=== PATIENT | female | born 1985 | race Caucasian/White ===

== ENCOUNTER 2018-02-05 00:33 | Emergency (ER) | payer MEDICAID, SELFPAY ==
[2018-02-05 00:33] VITALS: BMI 29.2
[2018-02-05 00:46] VITALS: TEMP 98.1
--- NOTE | 2018-02-05 00:58 | C.PDOC ---
History Of Present Illness 32 year old female, who is currently around 10 weeks , presents to the ED for evaluation after experiencing vaginal bleeding earlier today. Patient denies any pain or active bleeding at this time. Chief Complaint (Nursing): Abdominal Pain History Per: Patient History/Exam Limitations: no limitations Onset/Duration Of Symptoms: Hrs Current Symptoms Are (Timing): Better Quality Of Discomfort: denies: "Pain" Additional History Per: Patient Abnormal Vaginal Bleeding: Yes Past Medical History Reviewed: Historical Data, Nursing Documentation, Vital Signs Vital Signs: Last Vital Signs Temp 98.1 F 02/05/18 00:42 Pulse 82 02/05/18 00:42 Resp 20 02/05/18 00:42 BP 108/72 02/05/18 00:42 Pulse Ox 100 02/05/18 03:50 - Medical History PMH: No Chronic Diseases Surgical History: Appendectomy - [facility] Procedures ASPIRAT CURET-POST DELIV (01/10/15) LOW CERVICAL (09/14/13) Family History: States: Unknown Family Hx - Social History Hx Tobacco Use: No Hx Alcohol Use: No Hx Substance Use: No - Immunization History Hx Tetanus Toxoid Vaccination: No Hx Influenza Vaccination: No Hx Pneumococcal Vaccination: No Review Of Systems Genitourinary: Positive for: Vaginal Bleeding Physical Exam - Physical Exam Appears: Non-toxic, No Acute Distress Skin: Normal Color, Warm, Dry Head: Atraumatic, Normacephalic Eye(s): bilateral: Normal Inspection Oral Mucosa: Moist Neck: Supple Chest: Symmetrical, No Deformity, No Tenderness Cardiovascular: Rhythm Regular, No Murmur Respiratory: Normal Breath Sounds, No Rales, No Rhonchi, No Wheezing Gastrointestinal/Abdominal: Soft, No Tenderness, No Guarding, No Rebound Pelvic: No Vaginal Bleeding, No Adnexal Tenderness, Other (old blood noted in vaginal vault. no acute bleeding ) Extremity: Normal ROM, Capillary Refill (less than 2 seconds ) Neurological/Psych: Oriented x3, Normal Speech, Normal Cognition ED Course And Treatment - Laboratory Results Result Diagrams: 02/05/18 01:11 02/05/18 01:11 O2 Sat by Pulse Oximetry: 100 (on RA) Pulse Ox Interpretation: Normal - CT Scan/US Ultrasound Other Rad Studies (CT/US): Read By Radiologist, Radiology Report Reviewed CT/US Interpretation: EXAM: US First Trimester, Transabdominal. US , Transvaginal. CLINICAL HISTORY: 32 years old, female; Pain; complicated by abdominal or pelvic pain and other: Bleeding;. Lower; First trimester; Gestational age or lmp: 10/05/2017; ; Additional info: 4 months. . TECHNIQUE: Real-time transabdominal and transvaginal obstetrical ultrasound of the maternal pelvis and a first. trimester with image documentation. Transvaginal imaging was used for better evaluation. of the fetus and adnexa. COMPARISON: No relevant prior studies available. FINDINGS: Gestation: Single intrauterine . [place]-rump length 4.16 cm, corresponding to 11 weeks 0. days. This corresponds to an estimated delivery date of 08/27/2017, and differs from established. clinical dating by 6 weeks 4 days. No heart rate detected by M-mode imaging. Mean gestational. sac diameter of 5.41 cm, corresponding to 11 weeks 2 days. Placenta/amniotic fluid : Amniotic fluid volume is grossly normal. Uterus/cervix: A uterus measures 15.2 cm and 8.2 cm x 10.3 cm, and is anteverted in orientation. The cervix measures 5.2 cm in length with diffuse endocervical fluid. No funneling of the internal os. No myometrial mass. Ovaries: The right ovary is normal in size and echotexture measuring 2.7 cm x 2.4 cm x 2.7 cm. Normal color Doppler flow and spectral Doppler waveform within this ovary. Left ovary is normal in. size and echotexture measuring 2.7 cm x 1.8 cm x 2.6 cm. Normal color Doppler flow and spectral. Doppler waveform are present within this ovary. No mass. Free fluid: No free fluid. ROBERT GABRIEL | Preliminary Radiology Report. CONFIDENTIALITY STATEMENT. This report is intended only for the use of the referring physician, and only in accordance with law, If you received this in error, call [phone]. Page 2 of 2. IMPRESSION: 1. Single intrauterine with imaging findings consistent with first trimester . failure, as no heart rate was detected. 2. The crown-rump length corresponds to a gestational age of 11 weeks 0 days and delivery date of. 08/27/2017. This is discordant with established dating, and differs from established clinical dating by. 6 weeks 4 days. 3. The cervix appears long with a small amount of internal endocervical fluid. No significant cervical. funneling. 4. Normal appearance of the ovaries. No torsion. Progress Note: Bloodwork, urinalysis and pelvic ultrasound ordered and reviewed. Disposition Counseled Patient/Family Regarding: Diagnosis - Disposition Referrals: [facility] [Outside] Disposition: HOME/ ROUTINE Disposition Time: 03:49 Condition: STABLE Instructions: Miscarriage Forms: Gen Discharge Inst Occitan, [employer]ix (French) Print Language: OMANI - POA Present On Arrival: None - Clinical Impression Clinical Impression: demise, less than 22 weeks - Scribe Statement The provider has reviewed the documentation as recorded by the Scribe (Isabel Cook) Provider Attestation: All medical record entries made by the Scribe were at my direction and personally dictated by me. I have reviewed the chart and agree that the record accurately reflects my personal performance of the history, physical exam, medical decision making, and the department course for this patient. I have also personally directed, reviewed, and agree with the discharge instructions and disposition.
[2018-02-05 01:20] LABS: BASO # 0.1 K/uL (0.0-0.2); BASO % 0.8 % (0.0-2.0); EOS # 0.1 K/uL (0.0-0.7); EOS % 0.9 % (0.0-4.0); HEMOGLOBIN 13.4 g/dL (11.0-16.0); LYMPH # 2.5 K/uL (1.0-4.3); LYMPH % 28.9 % (20.0-40.0); MEAN CELL VOLUME 97.1 fL (81.0-99.0); MEAN CORPUSCULAR HEMOGLOBIN 33.4 pg (27.0-31.0); MEAN CORPUSCULAR HGB CONC 34.4 g/dL (33.0-37.0); MEAN PLATELET VOLUME 8.1 fL (7.2-11.7); MONO # 0.6 K/uL (0.0-0.8); MONO % 6.9 % (0.0-10.0); NEUT # 5.3 K/uL (1.8-7.0); NEUT % 62.5 % (50.0-75.0); RBC 4.01 Mil/uL (3.80-5.20); RED CELL DISTRIBUTION WIDTH 12.6 % (11.5-14.5); WHITE BLOOD COUNT 8.5 K/uL (4.8-10.8)
[2018-02-05 01:24] LABS: SQUAMOUS EPITHIAL 1 /hpf (0-5); URINE BACTERIA RARE (<OCC); URINE BILIRUBIN NEGATIVE (NEGATIVE); URINE BLOOD 2+ (NEGATIVE); URINE CLARITY Clear (Clear); URINE COLOR Straw (YELLOW); URINE GLUCOSE (UA) NORMAL (Normal); URINE LEUKOCYTE ESTERASE NEG Leu/uL (Negative); URINE PROTEIN NEGATIVE (NEGATIVE); URINE UROBILINOGEN NORMAL mg/dL (0.2-1.0)
[2018-02-05 01:28] LABS: ALB/GLOB RATIO 1.3 (1.0-2.1); ALBUMIN 4.1 g/dL (3.5-5.0); ALT/SGPT 22 U/L (9-52); AST/SGOT 18 U/L (14-36); BLOOD UREA NITROGEN 8 mg/dL (7-17); CALCIUM 9.2 mg/dl (8.6-10.4); GFR AFRICAN-AMERICAN > 60; GFR NON-AFRICAN AMERICAN > 60
[2018-02-05 04:19] VITALS: BP 102/69; PULSE 88; RESP 14; O2SAT 99
--- NOTE | 2018-02-05 17:58 | US ---
Date of service: 02/05/2018 PROCEDURE: OB Pelvic Ultrasound HISTORY: 4 months LMP: 10/05/2017, suggesting estimated gestational age of 17 weeks 4 days. COMPARISON: None available. FINDINGS: UTERUS: Gestational sac: Single intrauterine gestation. Heart rate: None detected. age (Ultrasound estimated): 11 weeks 0 days based on mean crown-rump length of 4.16 cm. Mean sac diameter measures 5.4 cm. Carie-gestational hemorrhage: None. Date of delivery (Ultrasound estimated) : 08/26/2018. Uterus measures 15.2 x 8.3 x 10.3 cm. No myometrial pathology appreciated. CERVIX: Measures 4.3 cm. Trace fluid is seen within the endocervical canal. RIGHT OVARY: Measures 2.7 x 2.4 x 2.7 cm. No mass lesion. Normal flow. LEFT OVARY: Measures 2.7 x 1.8 x 2.6 cm. No solid mass. Normal flow. FREE FLUID: None. OTHER FINDINGS: None. IMPRESSION: A single intrauterine gestation is identified with average ultrasonic age of 11 weeks 0 days but no cardiac activity detectable. Findings most compatible with demise. Ultrasound dates are discordant from LMP derived dates. Correlation with beta HCG analysis recommended. Clinical correlation is recommended. Trace fluid is seen within the endocervical canal with the cervix normal length overall.
== END 2018-02-05 04:19 | disposition home or self-care (01) ==
LOC: C.ER 00:33
DX: O02.1 Missed abortion (principal); Z3A.11 11 weeks gestation of pregnancy

== ENCOUNTER 2018-02-05 13:37 | Emergency (ER) | payer MEDICAID ==
[2018-02-05 13:38] VITALS: BMI 29.2
--- NOTE | 2018-02-05 14:18 | C.PDOC ---
History Of Present Illness 32 year old female presents to ED for evaluation of new onset pelvic pain, increased vaginal bleeding since this morning. Pt was evaluated 02/05, diagnosed with missed AB. Ultrasound report reviewed. Pt states she had vaginal spotting during initial ER eval but michael with new onset pain. No nausea, vomiting. NEW ONSET PELVIC PAIN, INCR VB SINCE THIS MORNING. EVAL 02/05, DX MISSED AB. US REPORT REVIEWED. PS HAD VAG SPOTTING DURING INITIAL ER EVAL BUT NOW W NEW ONSET PAIN. NO NV. EXAM MILD DIST NONTOXIC ABD +PELVIC TEND SOFT NO R/G REMAINDER NEG IMPRESSION: 1. Single intrauterine with imaging findings consistent with first trimester . failure, as no heart rate was detected. 2. The crown-rump length corresponds to a gestational age of 11 weeks 0 days and delivery date of. 08/27/2017. This is discordant with established dating, and differs from established clinical dating by. 6 weeks 4 days. 3. The cervix appears long with a small amount of internal endocervical fluid. No significant cervical. funneling. 4. Normal appearance of the ovaries. No torsion. Progress Note: Bloodwork, urinalysis and pelvic ultrasound ordered and reviewed. Time Seen by Provider: 02/05/18 13:58 Chief Complaint (Nursing): Female Genitourinary History Per: Patient History/Exam Limitations: no limitations Onset/Duration Of Symptoms: Days Current Symptoms Are (Timing): Still Present Quality Of Discomfort: "Pain" Associated Symptoms: denies: Nausea, Vomiting Alleviating Factors: None Recent travel outside of the [place]: No Additional History Per: Patient Past Medical History Reviewed: Historical Data, Nursing Documentation, Vital Signs Vital Signs: Last Vital Signs Temp 98.2 F 02/05/18 17:31 Pulse 72 02/05/18 17:31 Resp 16 02/05/18 17:31 BP 118/70 02/05/18 17:31 Pulse Ox 100 02/05/18 17:31 Surgical History: Appendectomy - [facility] Procedures ASPIRAT CURET-POST DELIV (01/10/15) LOW CERVICAL (09/14/13) Family History: States: Unknown Family Hx - Social History Hx Tobacco Use: No Hx Alcohol Use: No Hx Substance Use: No - Immunization History Hx Tetanus Toxoid Vaccination: No Hx Influenza Vaccination: No Hx Pneumococcal Vaccination: No Review Of Systems Except As Marked, All Systems Reviewed And Found Negative. Constitutional: Negative for: Fever, Chills Gastrointestinal: Positive for: Abdominal Pain. Negative for: Nausea, Vomiting , Diarrhea Genitourinary: Positive for: Vaginal Bleeding, Pelvic Pain. Negative for: Dysuria, Frequency Musculoskeletal: Negative for: Back Pain Neurological: Negative for: Headache, Dizziness Physical Exam - Physical Exam Appears: Non-toxic, Other (In mild distress) Skin: Normal Color, Warm, Dry Head: Atraumatic, Normacephalic Eye(s): bilateral: Normal Inspection Oral Mucosa: Moist Neck: Supple Cardiovascular: Rhythm Regular Respiratory: Normal Breath Sounds, No Rales, No Rhonchi, No Wheezing Gastrointestinal/Abdominal: Soft, Tenderness (pelvic), No Guarding, No Rebound Back: No CVA Tenderness Extremity: Normal ROM Neurological/Psych: Oriented x3, Normal Speech ED Course And Treatment - Laboratory Results Result Diagrams: 02/05/18 16:10 O2 Sat by Pulse Oximetry: 99 (RA) Pulse Ox Interpretation: Normal Progress - Re-Evaluation Re-evaluation Note: 02/05/18 15:57 SP SPONT PASSAGE POC, +FETUS IN SAC NOTED. PENDING SONO REPORT D/W DR LION SOLITARIO REVERSER AWARE OF ER FINDINGS. METHERGINE 0.2 MG Q6 X 4 DOSES 02/05/18 16:14 EXAM ALICIA ACUÑA ELECTION SUPERVISOR: SCANT BLOOD IN VAULT. OS CLOSED. POC SENT TO PATHOLOGY 02/05/18 16:15 - Data Reviewed Data Reviewed: Lab, Diagnostic imaging, Old records - Continuity of Care Discussed pt. case with risk consultant/specialty: Obstetrics/Gynecology Medical Decision Making Medical Decision Making: Plan: Transvaginal ultrasound Percocet Zofran Reassess Disposition Counseled Patient/Family Regarding: Studies Performed, Diagnosis, Need For Followup, Rx Given - Disposition Referrals: [facility] [Outside] [facility] [Outside] [facility]OB[facility] [Other] Disposition: HOME/ ROUTINE Disposition Time: 17:15 Condition: IMPROVED Prescriptions: Ibuprofen [Motrin] 600 mg PO Q6 #30 tab Methylergonovine [Methergine] 0.2 mg PO Q6 #3 tab Instructions: Miscarriage (DC) Forms: [employer]idwork (South Korean) Print Language: TAJIK - Clinical Impression Clinical Impression: Spontaneous - Scribe Statement The provider has reviewed the documentation as recorded by the Scribe KP All medical record entries made by the Sandeep were at my direction and personally dictated by me. I have reviewed the chart and agree that the record accurately reflects my personal performance of the history, physical exam, medical decision making, and the department course for this patient. I have also personally directed, reviewed, and agree with the discharge instructions and disposition.
[2018-02-05] MEDS ORDERED: Oxycodone/Acetaminophen 5/325 mg Tab PO STA (14:19)
[2018-02-05] MEDS ORDERED: Oxycodone/Acetaminophen 5/325 mg Tab ONE (14:29)
[2018-02-05 16:11] VITALS: PULSE 72; RESP 16
[2018-02-05 16:14] LABS: HEMOGLOBIN 12.9 g/dL (11.0-16.0); MEAN CELL VOLUME 97.4 fL (81.0-99.0); MEAN CORPUSCULAR HEMOGLOBIN 32.8 pg (27.0-31.0); MEAN CORPUSCULAR HGB CONC 33.7 g/dL (33.0-37.0); MEAN PLATELET VOLUME 8.1 fL (7.2-11.7); RBC 3.94 Mil/uL (3.80-5.20); RED CELL DISTRIBUTION WIDTH 12.5 % (11.5-14.5)
[2018-02-05 16:21] LABS: WHITE BLOOD COUNT 14.3 K/uL (4.8-10.8)
--- NOTE | 2018-02-05 17:27 | US ---
Date of service: 02/05/2018 PROCEDURE: OB Pelvic Ultrasound HISTORY: PAIN RO RETAINED POC LMP: 10/05/2017 suggesting estimated gestational age of 17 weeks 4 days. COMPARISON: None available. FINDINGS: UTERUS: Gestational sac: Single gestation is identified within the endometrial cavity and the endocervical canal with no detectable cardiac activity at this time. Mean crown-rump length measures 4.05 cm correspond to 11 weeks 0 days ultrasonic age which is discrepant from LMP derived dates of 17 weeks 4 days. The gestational sac is again identified at the lower uterine segment and potentially in part within the proximal segment of the internal cervical os. Car[place]-gestational hemorrhage: None. Date of delivery (Ultrasound estimated) : N/A Uterus measures 15.3 X 6.2 X 7.7 cm. Normal in size and appearance. CERVIX: Measures 1.02 cm. Foreshortened length with gestation in proximal segment of endocervical canal. RIGHT OVARY: Measures 4.0 x 2.2 x 4.0 cm. No mass lesion. Normal flow. LEFT OVARY: Measures 3.5 x 1.6 x 2.8 cm. No solid mass. Normal flow. FREE FLUID: None. OTHER FINDINGS: None. IMPRESSION: A single nonviable intrauterine gestation is identified with average ultrasonic age of lung weeks 0 days an no detectable cardiac activity once again. The gestational sac appears to have migrated further into the inferior segment of the endometrial cavity and react to be present the proximal segment of the internal cervical os at this time. Findings compatible with demise with within the lower uterine segment of the intracavity as well as the endocervical canal.
[2018-02-05 17:37] VITALS: BP 118/70; TEMP 98.2
[2018-02-06 07:20] VITALS: O2SAT 99
== END 2018-02-05 17:31 | disposition home or self-care (01) ==
LOC: C.ER 13:37
DX: O03.9 Complete or unspecified spontaneous abortion without complication (principal)
CPT/HCPCS: 76801; 85027; 88305; 96372; 96374; 96375; 99285; J1885; J2210; J2270

== ENCOUNTER 2018-02-09 19:37 | Emergency (ER) | payer MEDICAID ==
[2018-02-09 19:38] VITALS: BMI 29.2
--- NOTE | 2018-02-09 20:36 | C.PDOC ---
History Of Present Illness 32 year old female presents to the ED for evaluation of persistent vaginal bleeding and abdominal cramping. This is patients 3rd visit to the ED since . Patient was diagnosed with incomplete and was prescribed menstrogen. Patient states she completed the medication but bleeding persisted. Patient states this morning bleeding stopped but later in the day she noticed some bleeding along with clots. Patient denies fever, chills, nausea, vomit, diarrhea, dizziness. Time Seen by Provider: 02/09/18 20:05 Chief Complaint (Nursing): Female Genitourinary History Per: Patient History/Exam Limitations: no limitations Onset/Duration Of Symptoms: Days Current Symptoms Are (Timing): Still Present Quality Of Discomfort: Cramping Associated Symptoms: denies: Fever, Nausea, Vomiting, Diarrhea, Urinary Symptoms Recent travel outside of the [place]: No Additional History Per: Patient Abnormal Vaginal Bleeding: Yes Last Menstral Period: September 2017 Past Medical History Reviewed: Historical Data, Nursing Documentation, Vital Signs Vital Signs: Last Vital Signs Temp 99.1 F 02/09/18 20:39 Pulse 76 02/09/18 21:38 Resp 20 02/09/18 21:38 BP 98/58 L 02/09/18 21:38 Pulse Ox 100 02/09/18 21:55 - Medical History PMH: No Chronic Diseases Surgical History: Appendectomy - [facility] Procedures ASPIRAT CURET-POST DELIV (01/10/15) LOW CERVICAL (09/14/13) Family History: States: Unknown Family Hx - Social History Hx Tobacco Use: No Hx Alcohol Use: No Hx Substance Use: No - Immunization History Hx Tetanus Toxoid Vaccination: No Hx Influenza Vaccination: No Hx Pneumococcal Vaccination: No Review Of Systems Constitutional: Negative for: Fever, Chills Cardiovascular: Negative for: Chest Pain, Palpitations Respiratory: Negative for: Cough, Shortness of Breath Gastrointestinal: Positive for: Abdominal Pain. Negative for: Nausea, Vomiting Genitourinary: Positive for: Vaginal Bleeding. Negative for: Dysuria, Hematuria Musculoskeletal: Negative for: Back Pain Skin: Negative for: Rash Neurological: Negative for: Weakness, Numbness Physical Exam - Physical Exam Appears: Non-toxic, No Acute Distress Skin: Normal Color, Warm, Dry Head: Atraumatic, Normacephalic Eye(s): bilateral: Normal Inspection Oral Mucosa: Moist Neck: Normal ROM, Supple Chest: Symmetrical Cardiovascular: Rhythm Regular Respiratory: Normal Breath Sounds, No Rales, No Rhonchi, No Wheezing Gastrointestinal/Abdominal: Soft, Tenderness (mild abdominal ), No Guarding, No Rebound Extremity: Normal ROM, No Tenderness, No Swelling Neurological/Psych: Oriented x3, Normal Speech, Normal Cognition Gait: Steady ED Course And Treatment - Laboratory Results Result Diagrams: 02/09/18 20:40 02/09/18 20:40 O2 Sat by Pulse Oximetry: 100 (ON RA) Pulse Ox Interpretation: Normal - CT Scan/US Pelvic US Other Rad Studies (CT/US): Read By Radiologist, Radiology Report Reviewed CT/US Interpretation: EXAM: US Pelvis, Transvaginal. CLINICAL HISTORY: 32 years old, female; Signs and symptoms; Other: Vb; Additional info: Vb RO. retained poc. TECHNIQUE: Real-time transvaginal pelvic ultrasound (complete) with image documentation. Transvaginal imaging was used for better evaluation of the endometrium and adnexa. COMPARISON: US - 1ST TRIMESTER SINGLE 2018-02-05 14:39. FINDINGS: Uterus/cervix: Large volume of heterogeneous soft tissue in the endometrial canal and lower uterine. segment consistent with clot and retained products of conception. No intrauterine gestation is. identified. Endometrial stripe measures 1.5 cm in thickness within the uterus but the thickness of the cervical. canal is 3.7 cm due to probable clot and retained products. No myometrial mass. Right ovary: Unremarkable. No mass. Normal blood flow. Left ovary: Left ovary is not seen. Free fluid: No free fluid. Other findings: Quantitative beta hCG is 36. IMPRESSION: Large volume of heterogeneous soft tissue in the endometrial canal and lower uterine segment. consistent with clot and retained products of conception. No intrauterine gestation is identified. Thank you for allowing us to participate in the care of your patient. Dictated and Authenticated by: Alcides Thornton MD. 02/09/2018 9:39 PM Eastern Time ([place] & [place]) Progress - Re-Evaluation Re-evaluation Note: 02/09/18 21:54 EXAM [facility], US REPORT REVIEWED. D/W DR PAPA SOLITARIO CO FOUNDER AWARE OF ER FINDINGS, WILL REVIEW US 02/09/18 22:02 D/W DR ELAM, STATES PT CAN EXPECT TO VB UP TO 2 WEEKS AFTER METHERGINE. ADVISES DOXY 100 MG BID X 5 DAYS, FU CLINIC 02/14 - Data Reviewed Data Reviewed: Lab, Diagnostic imaging, Old records - Continuity of Care Discussed pt. case with regulatory services consultant/specialty: Obstetrics/Gynecology Medical Decision Making Medical Decision Making: impression: vaginal bleeding Plan: * Labs * IV fluids * UA * Pelvic US Patient is NPO until results from tests are back. Disposition Counseled Patient/Family Regarding: Studies Performed, Diagnosis, Need For Followup, Rx Given - Disposition Referrals: [facility] [Outside] [facility] [Outside] Disposition: HOME/ ROUTINE Disposition Time: 22:03 Condition: GOOD Prescriptions: Doxycycline Hyclate [Doryx] 100 mg PO BID #9 cap Instructions: Miscarriage (DC) Forms: [employer] (Arabic), Work/School/Gym Excuse Print Language: JAPANESE - Clinical Impression Clinical Impression: Incomplete miscarriage - Scribe Statement The provider has reviewed the documentation as recorded by the Scribe Sanjay Brody All medical record entries made by the Scribe were at my direction and personally dictated by me. I have reviewed the chart and agree that the record accurately reflects my personal performance of the history, physical exam, medical decision making, and the department course for this patient. I have also personally directed, reviewed, and agree with the discharge instructions and disposition.
[2018-02-09 20:40] VITALS: RESP 20; O2SAT 100
[2018-02-09] MEDS: Sodium Chloride 0.9% 1,000 ML IV ONE (20:46)
[2018-02-09] MEDS ORDERED: Sodium Chloride 0.9% 1,000 ML ONE (20:47)
[2018-02-09 20:49] LABS: BASO # 0.1 K/uL (0.0-0.2); BASO % 0.8 % (0.0-2.0); EOS # 0.1 K/uL (0.0-0.7); HEMOGLOBIN 11.7 g/dL (11.0-16.0); LYMPH # 1.9 K/uL (1.0-4.3); LYMPH % 24.6 % (20.0-40.0); MEAN CELL VOLUME 98.3 fL (81.0-99.0); MEAN CORPUSCULAR HEMOGLOBIN 33.7 pg (27.0-31.0); MEAN CORPUSCULAR HGB CONC 34.3 g/dL (33.0-37.0); MONO # 0.4 K/uL (0.0-0.8); MONO % 5.8 % (0.0-10.0); NEUT # 5.2 K/uL (1.8-7.0); NEUT % 67.8 % (50.0-75.0); RBC 3.46 Mil/uL (3.80-5.20); RED CELL DISTRIBUTION WIDTH 12.4 % (11.5-14.5); WHITE BLOOD COUNT 7.7 K/uL (4.8-10.8)
[2018-02-09 21:04] LABS: BLOOD UREA NITROGEN 8 mg/dL (7-17); CALCIUM 8.8 mg/dl (8.6-10.4); GFR AFRICAN-AMERICAN > 60; GFR NON-AFRICAN AMERICAN > 60
[2018-02-09 21:10] LABS: SQUAMOUS EPITHIAL 2 /hpf (0-5); URINE BACTERIA RARE (<OCC); URINE BILIRUBIN NEGATIVE (NEGATIVE); URINE BLOOD 3+ (NEGATIVE); URINE CLARITY Hazy (Clear); URINE COLOR Red (YELLOW); URINE GLUCOSE (UA) NORMAL (Normal); URINE PROTEIN 1+ mg/dL (NEGATIVE); URINE UROBILINOGEN NORMAL mg/dL (0.2-1.0)
[2018-02-09 21:12] LABS: URINE LEUKOCYTE ESTERASE NEGATIVE Leu/uL (Negative)
[2018-02-09 22:26] VITALS: BP 100/69; PULSE 72; TEMP 97.9
--- NOTE | 2018-02-10 10:14 | US ---
Date of service: 02/09/2018 HISTORY: VB RO RETAINED POC COMPARISON: Pelvic ultrasound dated 02/05/2018. TECHNIQUE: Grayscale, color Doppler and spectral evaluation the pelvis performed transvaginally. FINDINGS: UTERUS: Measures 13.0 x 5.9 x 6.4 cm. Anteverted. Normal in size and appearance. Intrauterine gestation no longer visualized. Market heterogeneity of the lower uterine segment likely related to clefts and/or retained products of conception No fibroid or other mass lesion seen. ENDOMETRIUM: Measures 15 mm in diameter. Hypervascular and dilated with clots and echogenic material. CERVIX: No cervical abnormality identified. RIGHT OVARY: Measures 3.1 x 1.7 x 2.0 cm. No solid mass. Normal flow. LEFT OVARY: Not visualized. FREE FLUID: No significant free fluid noted. OTHER FINDINGS: None. IMPRESSION: Large volume with heterogeneous soft tissue in the endometrial canal in the lower uterine segment consistent with clotted retained products of conception. No intrauterine gestation identified.
== END 2018-02-09 22:26 | disposition home or self-care (01) ==
LOC: C.ER 19:37
DX: O03.4 Incomplete spontaneous abortion without complication (principal)
CPT/HCPCS: 76830; 80048; 81001; 84702; 85025; 96360; 99285; J7030